=== PATIENT | female | born 1985 | race African-American/Black ===

== ENCOUNTER 2016-10-04 20:36 | Emergency (ER) | payer OTHER ==
[~2016-10-04] VITALS: Ht 165.1 cm; Wt 49.9 kg
[2016-10-04 20:37] VITALS: BP 110/67
[2016-10-04] MEDS ORDERED: MOBIC7.5 MG PO (21:18)
== END 2016-10-04 21:25 | disposition home or self-care (01) ==
LOC: ER 20:36
DX: K02.9 Dental caries, unspecified (principal); Z77.22 Contact with and (suspected) exposure to environmental tobacco smoke (acute) (chronic)